=== PATIENT | female | born 1990 | race Caucasian/White ===

== ENCOUNTER 2018-06-28 07:29 | Outpatient (CLI) | payer BC ==
--- NOTE | 2018-06-28 10:03 | MRI ---
MRI LUMBAR SPINE WITHOUT CONTRAST: Date: 06/28/18 HISTORY: Lumbago with right-sided sciatica. COMPARISON: None. TECHNIQUE: MRI lumbar spine is performed without intravenous Gadolinium administration. Multisequential, multipl roman imaging is performed. FINDINGS: Mild straightening of normal lumbar lordosis. Appropriate vertebral body height. No evidence of fract ure. No significant STIR hyperintensity to suggest vertebral body edema or ligamentous injury. Approp riate T1 marrow signal intensity of the lumbar vertebra. Appropriate signal intensity of the psoas muscles. Conus medullaris terminates at the inferior aspect of L1. T12-L1: Adequate disc hydration. No significant central canal stenosis. Neural foramina are patent. L1-L2: Adequate disc hydration. No significant central canal stenosis. Neural foramina are patent. L2-L3: Adequate disc hydration. No significant central canal stenosis. Neural foramina are patent. L3-L4: Adequate disc hydration. No significant central canal stenosis. Neural foramina are patent. L4-L5: Adequate disc hydration. No significant central canal stenosis. Neural foramina are patent. L5-S1: Adequate disc hydration. No significant central canal stenosis. Neural foramina are patent. IMPRESSION: No significant central canal stenosis or neural foraminal narrowing. POS: [facility]
== END 2018-06-28 07:30 | disposition home or self-care (01) ==
LOC: BICMRI 07:29
PROVIDERS: ATTEND Family Medicine
DX: M54.41 Lumbago with sciatica, right side (principal); M54.42 Lumbago with sciatica, left side
CPT/HCPCS: 72148